=== PATIENT | male | born 1990 | race Caucasian/White ===

== ENCOUNTER 2022-08-22 07:06 | Outpatient (REF) | payer OTHER, SELFPAY ==
[2022-08-22 11:56] LABS: Hematocrit 41.8 % (42.0-52.0); Hemoglobin 14.4 g/dl (14.0-18.0); Mean Corpuscular HGB Conc 34.4 g/dl (31.0-36.0); Mean Corpuscular Hemoglobin 32.4 pg (27.0-33.0); Mean Corpuscular Volume 93.9 fL (80.0-98.0); Mean Platelet Volume 12.1 fL (9.4-12.4); Platelet Count 157 X10*3/uL (160-400); Red Blood Count 4.45 X10*6/uL (4.60-5.80); Red Cell Distribution Width 11.9 % (11.0-16.0); White Blood Count 4.8 X10*3/uL (4.8-10.8)
[2022-08-22 12:21] LABS: Appearance Urine Turbid; Color Urine Yellow; Glucose Urine UA Negative (Negative); Leukocyte Esterase Urine Negative (Negative); Nitrite Urine Negative (Negative); PH 5.5 (5.0-9.0); Specific Gravity - Urine 1.025 (1.005-1.025); Urine Blood Negative (Negative); Urine Ketones Trace mg/dL (Negative); Urine Protein Negative (Neg-Trace)
[2022-08-22 12:47] LABS: Alanine Aminotransferase 51 U/L (0-40); Albumin Level 4.5 g/dL (3.5-5.0); Alkaline Phosphatase 55 U/L (39-117); Anion Gap 11 (12-20); Aspartate Amino Transferase 26 U/L (5-37); Bilirubin Total 0.7 mg/dL (0.0-1.0); Blood Urea Nitrogen 18 mg/dL (9-16); Calcium 9.5 mg/dL (8.4-10.2); Carbon Dioxide 26 mmol/L (22-29); Chloride 109 mmol/L (96-108); Estimated Glomerular Filt Rate > 60; Glucose Fasting 105 mg/dL (60-99); Lipase 20 U/L (8-78); Potassium 4.1 mmol/L (3.3-5.1); Sodium 142 mmol/L (135-145); Total Protein 7.1 g/dL (6.5-8.0)
[2022-08-22 12:50] LABS: TSH reflex Free T4 1.38 uIU/mL (0.32-4.0)
== END 2022-08-22 07:07 | disposition home or self-care (01) ==
LOC: HO.WFDLDS 07:06
PROVIDERS: Visit Provider Nurse Practitioner Family
DX: Z00.00 Encounter for general adult medical examination without abnormal findings (principal)
CPT/HCPCS: 36415; 80053; 81003; 83690; 84443; 85027

== ENCOUNTER 2022-09-22 07:23 | Outpatient (REF) | payer OTHER, SELFPAY | END 2022-09-22 07:24 | disposition home or self-care (01) | LOC: HO.WFDLDS 07:23 | PROVIDERS: Visit Provider Nurse Practitioner Family | DX: Z00.00 Encounter for general adult medical examination without abnormal findings (principal); R73.01 Impaired fasting glucose; D69.6 Thrombocytopenia, unspecified | CPT/HCPCS: 36415; 80061; 82947; 85049 ==

== ENCOUNTER 2022-10-07 15:56 | Outpatient (AMB) | payer OTHER, SELFPAY ==
[2022-10-07 16:08] VITALS: BP 124/72; PULSE 65; TEMP 36.9; O2SAT 98; BMI 35.3
--- NOTE | 2022-10-07 16:08 | A.OFFPC_ITS ---
Vital Signs 10/07/22 16:08 Height 6 ft 1.5 in Weight 271 lb BMI 35.3 BP 124/72 Blood Pressure Location Lt brachial Position Sitting Pulse 65 Pulse Source Pulse Oximeter Temp 98.5 F Temp Source Oral Pulse Oximetry (%) 98 Oxygen Delivery Method Room Air Intake Visit Reasons: CPE Intake Note: Patient is here for physical today. Patient would like refill of Naltrexone and Trazedone today. Allergies Seasonal Allergies Allergy (Mild, Verified 10/07/22 16:52) Sneezing Medication List - Last Reconciled 10/07/22 by Lambert Ann CNP amoxicillin 250 mg PO TID colchicine (Mitigare) 0.6 mg PO DAILY PRN naltrexone 50 mg PO DAILY sertraline 150 mg PO DAILY trazodone 25 mg PO BEDTIME Tobacco use date assessed: 08/07/22 HPI HPI Comments History of Present Illness Details 32-year-old male presents for complete physical exam. He has history of anxiety and depression. He states that his symptoms are well controlled with sertraline. He states that he has not consumed alcohol since he started therapy for alcohol abuse. He notes that he continues to attend group therapy 3 nights weekly and that he was informed he will be on naltrexone for year. Addiction medicine provider prescribed naltrexone. Wounds to his left arm and right lower leg have healed. No acute symptoms today. He requests a refill for sertraline and trazodone. [facility] Medical History Anxiety Eczema Shingles Family History Paternal Grandmother Asthma Father Alcoholism Paternal Grandfather Alcoholism Social History Housing: House Patient Tobacco Use Status: Former Tobacco user Tobacco use type: Cigarette Cigarette Packs Per Day: 0.25 e-Cigarette/Vaping Use: Never Used Second Hand Smoke Exposure: No service: No Current occupational status: employed Current occupation: [employer] Cognitive needs: No Hearing needs: No Vision needs: No Questionnaire PHQ-9 Over the last 2 weeks, how often have you been bothered by any of the following problems? 1. Little interest or pleasure in doing things: not at all 2. Feeling down, depressed, or hopeless: not at all 3. Trouble falling or staying asleep, or sleeping too much: not at all 4. Feeling tired or having little energy: not at all 5. Poor appetite or overeating: not at all 6. Feeling bad about yourself - or that you are a failure or have let yourself or your family down: not at all 7. Trouble concentrating on things, such as reading the newspaper or watching television: not at all 8. Moving or speaking so slowly that other people could have noticed. Or the opposite - being so fidgety or restless that you have been moving around a lot more than usual: not at all 9. Thoughts that you would be better off or of hurting yourself in some way: not at all Total score: 0 Depression Screening Interpretation: Negative Source: Developed by Drs. Sanchez López, Angela Hutchinson, Terry Flores and colleagues, with an educational yamile from [employer]. Thrive Questionnaire Date Thrive assessed: 08/07/22 MELISSA-7 AMB Questionnaire MELISSA-7 Date MELISSA - 7 assessed: 09/10/22 Feeling nervous, anxious, or on edge: 0 = Not at all Not being able to stop or control worryin = Not at all Worrying too much about different things: 0 = Not at all Trouble relaxin = Not at all Being so restless that it is hard to sit still: 0 = Not at all Becoming easily annoyed or irritable: 0 = Not at all Feeling afraid as if something awful might happen: 0 = Not at all Total MELISSA-7 score (0-4 normal; 5-9 mild; 10-14 moderate; 15-21 severe): 0 Source: Developed by Drs. Sanchez López, Angela Hutchinson, Terry Flores and colleagues, with an educational yamile from [employer]. Review of Systems Const Details: Denies chills, Denies fatigue, Denies fever(s), Denies headache(s) and Denies weakness HEENT Denies change in vision, Denies dizziness, Denies headache(s), Denies hearing loss, Denies nasal congestion, Denies sinus pain, Denies sinus pressure and Denies sore throat Card Denies chest pain, Denies lightheadedness, Denies dyspnea and Denies other (palpitations) Resp Denies cough, Denies dyspnea and Denies wheezing GI Denies abdominal pain, Denies melena, Denies hematochezia, Denies change in bowel habits, Denies dyspepsia and Denies nausea Denies hematuria and Denies dysuria Musc Denies abnormal gait, Denies myalgias, Denies arthralgias, Denies numbness and Denies tingling Skin/Breast Denies rash, Denies unusual bruising and Denies wounds Neuro Denies abnormal gait, Denies dizziness, Denies headache(s), Denies memory loss, Denies numbness, Denies Sensory deficit (Neuro), Denies tingling and Denies w eakness Psych Denies anxiety, Denies depression and Denies memory loss Endo Denies cold intolerance, Denies fatigue, Denies heat intolerance, Denies p olydipsia and Denies polyuria Asaf/Lymph Denies easy bleeding and Denies easy bruising Aller/Immun Denies wheezing Physical exam (Primary Care) Vital Signs: Last Vital Signs Temp 98.5 F 10/07/22 16:08 Pulse 65 10/07/22 16:08 BP 124/72 10/07/22 16:08 Pulse Ox 98 10/07/22 16:08 Oxygen Delivery Method Room Air 10/07/22 16:08 BMI result Body Mass Index 35.3 Tobacco/Smoking Status: Tobacco use Status Tobacco use date assessed 08/07/22 10/07/22 16:15 Patient Tobacco Use Status Former Tobacco user 10/07/22 16:15 Tobacco use type Cigarette 10/07/22 16:15 e-Cigarette/Vaping Use Never Used 10/07/22 16:15 PHQ-9: PHQ-9 Score PHQ-9: Total score 0 10/07/22 16:15 Depression Screening Interpretation: Negative Thrive Assessment: Date of Thrive Assessment Date Thrive assessed 08/07/22 10/07/22 16:15 Const Other: General: no acute distress, well developed, alert and awake Nutritional Appearance: well nourished Orientation/consciousness: patient oriented x3 HENMT Head: Yes normocephalic and Yes atraumatic Ears: hearing grossly normal bilaterally and TM's normal bilaterally General nose exam: Normal external nose present and Normal nares present Mouth: Normal oral and palatal mucosa present and moist mucous membranes Teeth and gingiva: dentition normal Throat: Yes oropharynx normal Eyes Pupils: Equal, round and reactive pupils present and Pupil accommodation reflex normal EOM: EOMs intact bilaterally Neck Neck: Yes normal visual inspection, Yes no lymphadenopathy and Yes trachea midline Thyroid: Thyroid normal Carotids: no bruits Lymphatic: no lymphadenopathy noted Chest Chest palpation & inspection: normal inspection of the chest Resp Effort & Inspection: normal respiratory effort Auscultation: clear to auscultation bilaterally Cardio Rate: regular rate Rhythm: regular rhythm Heart sounds: S1 normal heart sound present, S2 normal heart sound present, no gallops, no murmurs and no rubs Bruits: no abdominal aortic bruits and no carotid bruits GI Palpation (GI): No Abdominal aortic bruit present, Soft to palpation, nontender, No hepatosplenomegaly present and No Rebound tenderness present Auscultation: normal bowel sounds General: Yes no CVA tenderness Back/Spine/Pelvis Back: no CVA tenderness Cervical Spine: cervical ROM normal and No Cervical spine tenderness Thoracic/Lumbar Spine: thoraco-lumbar ROM normal, No pain with thoraco-lumbar ROM, No thoracic spinal tenderness and No lumbar spinal tenderness Skin General: warm and dry. Normal skin color. Normal skin turgor Lesions: no lesions Rashes: no rashes Trauma: no lacerations or abrasions Wounds: Healthy scabs some to left arm and right lower extremity Nails: normal Neuro General: patient oriented x3, gait normal and CN's II-XI intact bilaterally Cranial nerves: Yes Equal, round and reactive pupils present Cognition (Neuro): normal cognition Gait exam (Neuro): Normal gait present Motor exam (neuro): 5/5 motor strength present throughout Sensory Exam: No Sensory deficit (Neuro) Deep tendon reflexes (DTR's): Right patellar reflex intensity grade: 2+ and Left patellar reflex intensity grade: 2+ Extrem General: Yes normal to inspection, No edema and No calf tenderness Psych Appearance: grossly normal Affect: normal affect Attitude: cooperative Thought process: Normal thought process present Assessment and Plan Assessment & Plan (1) Normal physical examination, routine: Code(s): Z00.00 - Encounter for general adult medical examination without abnormal findings Plan: Normal physical exam of a 31-year-old male No significant physical restrictions or limitations noted (2) Anxiety with depression: Code(s): F41.8 - Other specified anxiety disorders Plan: PHQ-9 and MELISSA-7 scores are negative Trazodone and sertraline refilled. Take as prescribed Routine exercise encouraged Follow-up in 3 months or return sooner with symptoms or concerns Verbalized understanding and agreed with treatment plan. (3) Wound cellulitis: Code(s): L03.90 - Cellulitis, unspecified Plan: Healthy scabs noted to the left arm and right lower extremity (4) Alcohol abuse, in remission: Code(s): F10.11 - Alcohol abuse, in remission Plan: He states that he has not consumed alcohol since he started therapy for alcohol abuse. He notes that he continues to attend group therapy 3 nights weekly and that he was informed he will be on naltrexone for year. Addiction medicine provider prescribed naltrexone. Encouraged to continue group therapy Continue to take naltrexone as prescribed Follow-up with any concerns Verbalized understanding and agreed with treatment plan Medications: Changed From trazodone 25 mg PO BEDTIME To trazodone 25 mg (1/2 x 50 mg) PO BEDTIME 15 tabs 0RF 30 days From sertraline 150 mg PO DAILY To sertraline 150 mg PO DAILY 30 caps 3RF 30 days Coding Level of Care Code Est Pt Prev Care 18-39y(63711) Diagnoses Normal physical examination, routine Z00.00 Anxiety with depression F41.8 Wound cellulitis L03.90 Alcohol abuse, in remission F10.11
== END 2022-10-07 17:04 | disposition home or self-care (01) ==
PROVIDERS: PCP Nurse Practitioner Family; Visit Provider Nurse Practitioner Family
DX: Z00.00 Encounter for general adult medical examination without abnormal findings (principal); F41.8 Other specified anxiety disorders; L03.90 Cellulitis, unspecified; F10.11 Alcohol abuse, in remission
CPT/HCPCS: 99395

== ENCOUNTER → 2022-11-10 12:44 | Outpatient (BNV) | payer OTHER, SELFPAY | PROVIDERS: PCP Nurse Practitioner Family; Referring Provider Nurse Practitioner Family; Visit Provider Internal Medicine Medical Oncology | DX: D69.6 Thrombocytopenia, unspecified (principal) | CPT/HCPCS: 99204 ==

== ENCOUNTER 2022-11-27 15:38 | Outpatient (AMB) | payer OTHER, SELFPAY ==
--- NOTE | 2022-11-27 15:50 | A.OFFPC_ITS ---
Vital Signs 11/27/22 15:51 Height 6 ft 1 in Weight 278 lb 8 oz BMI 36.7 BP 118/70 Blood Pressure Location Rt brachial Position Sitting Respiration 12 Pulse 75 Pulse Source Pulse Oximeter Temp 97.9 F Temp Source Temporal Artery Scan Pulse Oximetry (%) 99 Oxygen Delivery Method Room Air Intake Visit Reasons: referral for tingling in hands Intake Note: Patient states that he would like a referral to at [facility].Patient states that he needs refill for Naltrexone and Sertraline. Patient states he got email from stating that Sertraline refill was denied and he would like a refill. Sack Cleaning Hand Required: No Accompanied by: Self / Same As Patient Allergies Seasonal Allergies Allergy (Mild, Verified 11/27/22 16:06) Sneezing Medication List - Last Reconciled 11/27/22 by Lambert Ann CNP colchicine (gout) (Mitigare) 0.6 mg PO DAILY PRN naltrexone 50 mg PO DAILY sertraline 150 mg PO DAILY 30 days trazodone 25 mg (1/2 x 50 mg) PO BEDTIME 30 days Tobacco use date assessed: 08/07/22 Dental Screening Dental Screen Date: 11/27/22 Did you have a dental visit in the last 12 months?: No Did you have a dental problem in the last 6 months where you did not have access to dental care?: No Was dental information given to patient?: Yes HPI HPI Comments History of Present Illness Details 32-year-old male presents with complaint s of ongoing intermittent tingling and numbness to his hands which occasionally radiates to his forearms. He also endorses intermittent pain. He states his symptoms have been ongoing for the past 6 years and worse in the past 3 months. He requests a referral to Dr. Quinn, and specialist at [facility]. He is on naltrexone for alcohol dependence and attends therapy for alcohol abuse. He notes he has been sober for 90 days. [facility] Medical History (Updated 11/27/22 @ 16:22 by Lambert Ann CNP) Eczema Shingles Anxiety Surgical History (Updated 11/27/22 @ 16:00 by Mayra Moore MA) No pertinent past surgical history Family History Paternal Grandmother Asthma Father Alcoholism Paternal Grandfather Alcoholism Social History Housing: House Patient Tobacco Use Status: Former Tobacco user Tobacco use type: Cigarette Cigarette Packs Per Day: 0.25 e-Cigarette/Vaping Use: Never Used Second Hand Smoke Exposure: No service: No Current occupational status: employed Current occupation: [employer] Cognitive needs: No Hearing needs: No Vision needs: No Questionnaire PHQ-9 Over the last 2 weeks, how often have you been bothered by any of the following problems? 1. Little interest or pleasure in doing things: not at all 2. Feeling down, depressed, or hopeless: not at all 3. Trouble falling or staying asleep, or sleeping too much: not at all 4. Feeling tired or having little energy: not at all 5. Poor appetite or overeating: not at all 6. Feeling bad about yourself - or that you are a failure or have let yourself or your family down: not at all 7. Trouble concentrating on things, such as reading the newspaper or watching television: not at all 8. Moving or speaking so slowly that other people could have noticed. Or the opposite - being so fidgety or restless that you have been moving around a lot more than usual: not at all 9. Thoughts that you would be better off or of hurting yourself in some way: not at all Total score: 0 Source: Developed by Drs. Sanchez López, Angela Hutchinson, Terry Flores and colleagues, with an educational yamile from [employer]. Thrive Questionnaire Date Thrive assessed: 08/07/22 MELISSA-7 AMB Questionnaire MELISSA-7 Date MELISSA - 7 assessed: 11/27/22 Feeling nervous, anxious, or on edge: 0 = Not at all Not being able to stop or control worryin = Not at all Worrying too much about different things: 0 = Not at all Trouble relaxin = Not at all Being so restless that it is hard to sit still: 0 = Not at all Becoming easily annoyed or irritable: 0 = Not at all Feeling afraid as if something awful might happen: 0 = Not at all Total MELISSA-7 score (0-4 normal; 5-9 mild; 10-14 moderate; 15-21 severe): 0 Source: Developed by Drs. Sanchez López, Angela Hutchinson, Terry Flores and colleagues, with an educational yamile from [employer]. Review of Systems Const Details: Const Denies chills, Denies fatigue, Denies fever(s), Denies headache(s) and Denies weakness ENT Denies dizziness and Denies headache(s) Card Denies chest pain, Denies lightheadedness, Denies dyspnea and Denies other (Palpitations) Resp Denies cough, Denies dyspnea, Denies wheezing and Denies other ( shortness of breath) GI Denies abdominal pain, Denies melena, Denies hematochezia, Denies change in bowel habits, Denies dyspepsia and Denies nausea Denies hematuria and Denies dysuria Musc Denies abnormal gait, Denies myalgias, Denies arthralgias, Denies numbness and Denies tingling Skin/Breast Denies rash, Denies unusual bruising and Denies wounds Neuro Denies abnormal gait, Denies dizziness, Denies headache(s), Denies memory loss, Denies numbness, Denies Sensory deficit (Neuro), Denies tingling and Denies weakness Psych Denies anxiety, Denies depression, Denies memory loss Endo Denies cold intolerance, Denies fatigue, Denies heat intolerance, Denies polydipsia and Denies polyuria Aller/Immun Denies wheezing Physical exam (Primary Care) Vital Signs: Last Vital Signs Temp 97.9 F 11/27/22 15:51 Pulse 75 11/27/22 15:51 Resp 12 11/27/22 15:51 BP 118/70 11/27/22 15:51 Pulse Ox 99 11/27/22 15:51 Oxygen Delivery Method Room Air 11/27/22 15:51 BMI result Body Mass Index 36.7 Tobacco/Smoking Status: Tobacco use Status Tobacco use date assessed 08/07/22 11/27/22 16:02 Patient Tobacco Use Status Former Tobacco user 11/27/22 16:02 Tobacco use type Cigarette 11/27/22 16:02 e-Cigarette/Vaping Use Never Used 11/27/22 16:02 PHQ-9: PHQ-9 Score PHQ-9: Total score 0 11/27/22 16:02 Thrive Assessment: Date of Thrive Assessment Date Thrive assessed 08/07/22 11/27/22 16:02 Const Other: General: no acute distress and well developed Nutritional Appearance: well nourished Orientation/consciousness: patient oriented x3 [facility] Head: Yes normocephalic and Yes atraumatic Eyes General: appearance normal, both eyes and all related structures Pupils: Equal, round and reactive pupils present EOM: EOMs intact bilaterally Resp Effort & Inspection: normal respiratory effort Auscultation: clear to auscultation bilaterally Cardio Rate: regular rate Rhythm: regular rhythm Heart sounds: S1 normal heart sound present, S2 normal heart sound present, no gallops, no murmurs and no rubs GI Palpation (GI): No Abdominal aortic bruit present, Soft to palpation, nontender, No hepatosplenomegaly present and No Rebound tenderness present Auscultation: normal bowel sounds General: Yes no CVA tenderness Back/Spine/Pelvis Back: no CVA tenderness Cervical Spine: cervical ROM normal and No Cervical spine tenderness Thoracic/Lumbar Spine: thoraco-lumbar ROM normal, No pain with thoraco-lumbar ROM, No thoracic spinal tenderness and No lumbar spinal tenderness Extrem General: Yes normal to inspection, No edema and No calf tenderness Negative Tinel and Phalen tests Skin General: warm and dry. Normal skin color. Normal skin turgor Lesions: no lesions Rashes: no rashes Trauma: no lacerations or abrasions Wounds: no wounds Nails: normal Neuro General: patient oriented x3, gait normal and no focal neuro deficit Cranial nerves: Yes Equal, round and reactive pupils present Cognition (Neuro): normal cognition Gait exam (Neuro): Normal gait present Sensory Exam: No Sensory deficit (Neuro) Psych Appearance: grossly normal Affect: normal affect Attitude: cooperative Thought process: Normal thought process present Assessment and Plan Assessment & Plan (1) Paresthesia and pain of both upper extremities: Code(s): R20.2 - Paresthesia of skin; M79.601 - Pain in right arm; M79.602 - Pain in left arm Plan: Intermittent persistent tingling and numbness of both hands and forearms Negative Tinel and Phalen signs Likely nerve pain Gabapentin ordered. Take as prescribed Referred to hand specialist Return with worsening or new symptoms Verbalized understanding and agreed with treatment plan. Orders: Referrals Orthopedics Referral M79.601 - Pain in right arm, M79.602 - Pain in left arm, R20.2 - Paresthesia of skin Medications: Refilled sertraline 150 mg PO DAILY 30 days 30 caps 3RF Patient Instructions: Gabapentin ordered. Take as prescribed Referred to [facility] Follow-up with worsening or new symptoms Verbalized understanding and agreed with treatment plan. He will contact addiction medicine for refill of naltrexone. Coding Level of Care Code Est Pt Level 3 (79947) Diagnoses Paresthesia and pain of both upper extremities R20.2; M79.601; M79.602
[2022-11-27 15:51] VITALS: BP 118/70; PULSE 75; RESP 12; TEMP 36.6; O2SAT 99; BMI 36.7
== END 2022-11-27 16:17 | disposition home or self-care (01) ==
PROVIDERS: PCP Nurse Practitioner Family; Visit Provider Nurse Practitioner Family
DX: R20.2 Paresthesia of skin (principal); M79.601 Pain in right arm; M79.602 Pain in left arm
CPT/HCPCS: 99213

== ENCOUNTER 2023-05-04 15:59 | Outpatient (AMB) | payer OTHER, SELFPAY ==
--- NOTE | 2023-05-04 16:07 | MHC.PC.OV ---
Vital Signs 05/04/23 16:08 Height 6 ft 1 in Weight 300 lb BMI 39.6 BP 120/74 Blood Pressure Location Rt brachial Position Sitting Respiration 13 Pulse 88 Pulse Source Pulse Oximeter Temp 97.9 F Temp Source Temporal Artery Scan Pulse Oximetry (%) 98 Oxygen Delivery Method Room Air Intake Visit Reasons: Sertraline Update Health Safety Coordinator Required: No Accompanied by: Self / Same As Patient Allergies Seasonal Allergies Allergy (Mild, Verified 05/04/23 16:12) Sneezing Tobacco use date assessed: 05/04/23 Dental Screening Dental Screen Date: 05/04/23 Did you have a dental visit in the last 12 months?: No Did you have a dental problem in the last 6 months where you did not have access to dental care?: No Was dental information given to patient?: Yes HPI HPI Comments History of Present Illness Details 32 y/o male presents for anxiety and depression follow up His last office visit was in November 2022 He admits to taking his medications as prescribed without adverse reactions He offers no complaints and denies acute symptoms at this time He states that he had carpal tunnel surgery of both hands in March 2023. He was given 6 weeks time off work. He is due to return to work next week He has no longer on naltrexone. He continues to attend AA meeting. He has been avoiding alcohol intake. [facility] Medical History (Updated 11/27/22 @ 16:22 by Lambert Ann CNP) Eczema Shingles Anxiety Surgical History (Updated 05/04/23 @ 16:15 by Mayra Moore MA) History of carpal tunnel surgery No pertinent past surgical history Family History Paternal Grandmother Asthma Father Alcoholism Paternal Grandfather Alcoholism Social History Housing: House Patient Tobacco Use Status: Former Tobacco user Tobacco use type: Cigarette Cigarette Packs Per Day: 0.25 e-Cigarette/Vaping Use: Never Used Second Hand Smoke Exposure: No service: No Current occupational status: employed Current occupation: [employer] Cognitive needs: No Hearing needs: No Vision needs: No Questionnaire PHQ-9 Over the last 2 weeks, how often have you been bothered by any of the following problems? 1. Little interest or pleasure in doing things: several days 2. Feeling down, depressed, or hopeless: not at all 3. Trouble falling or staying asleep, or sleeping too much: not at all 4. Feeling tired or having little energy: several days 5. Poor appetite or overeating: several days 6. Feeling bad about yourself - or that you are a failure or have let yourself or your family down: not at all 7. Trouble concentrating on things, such as reading the newspaper or watching television: not at all 8. Moving or speaking so slowly that other people could have noticed. Or the opposite - being so fidgety or restless that you have been moving around a lot more than usual: not at all 9. Thoughts that you would be better off or of hurting yourself in some way: not at all Total score: 3 Depression Screening Interpretation: Negative Depression Screening Done: Yes 58113 - PHQ-9 Billing: Yes Source: Developed by Drs. Sanchez López, Angela Hutchinson, Terry Flores and colleagues, with an educational yamile from [employer]. Thrive Questionnaire Date Thrive assessed: 08/07/22 MELISSA-7 AMB Questionnaire MELISSA-7 Date MELISSA - 7 assessed: 05/04/23 Feeling nervous, anxious, or on edge: 0 = Not at all Not being able to stop or control worryin = Not at all Worrying too much about different things: 0 = Not at all Trouble relaxin = Not at all Being so restless that it is hard to sit still: 0 = Not at all Becoming easily annoyed or irritable: 1 = Several days Feeling afraid as if something awful might happen: 0 = Not at all Total MELISSA-7 score (0-4 normal; 5-9 mild; 10-14 moderate; 15-21 severe): 1 Source: Developed by Drs. Sanchez López, Angela Hutchinson, Terry Flores and colleagues, with an educational yamile from [employer]. MELISSA-7 Assessment Billing MELISSA-7 Assessment Tool: MELISSA-7 Assessment 69216 Review of Systems Const Details: Const Denies chills, Denies fatigue, Denies fever(s), Denies headache(s) and Denies weakness ENT Denies dizziness and Denies headache(s) Card Denies chest pain, Denies lightheadedness, Denies dyspnea and Denies other (Palpitations) Resp Denies cough, Denies dyspnea, Denies wheezing and Denies other ( shortness of breath) GI Denies abdominal pain, Denies melena, Denies hematochezia, Denies change in bowel habits, Denies dyspepsia and Denies nausea Denies hematuria and Denies dysuria Musc Denies abnormal gait, Denies myalgias, Denies arthralgias, Denies numbness and Denies tingling Skin/Breast Denies rash, Denies unusual bruising and Denies wounds Neuro Denies abnormal gait, Denies dizziness, Denies headache(s), Denies memory loss, Denies numbness, Denies Sensory deficit (Neuro), Denies tingling and Denies weakness Psych Denies anxiety, Denies depression, Denies memory loss Endo Denies cold intolerance, Denies fatigue, Denies heat intolerance, Denies polydipsia and Denies polyuria Aller/Immun Denies wheezing Physical exam (Primary Care) Tobacco/Smoking Status: Tobacco use Status Tobacco use date assessed 08/07/22 11/27/22 16:02 Patient Tobacco Use Status Former Tobacco user 11/27/22 16:02 Tobacco use type Cigarette 11/27/22 16:02 e-Cigarette/Vaping Use Never Used 11/27/22 16:02 Depression Screening Interpretation: Negative Thrive Assessment: Date of Thrive Assessment Date Thrive assessed 08/07/22 11/27/22 16:02 Const Other: General: no acute distress and well developed Nutritional Appearance: well nourished Orientation/consciousness: patient oriented x3 HENNM Head: Yes normocephalic and Yes atraumatic Eyes General: appearance normal, both eyes and all related structures Pupils: Equal, round and reactive pupils present EOM: EOMs intact bilaterally Resp Effort & Inspection: normal respiratory effort Auscultation: clear to auscultation bilaterally Cardio Rate: regular rate Rhythm: regular rhythm Heart sounds: S1 normal heart sound present, S2 normal heart sound present, no gallops, no murmurs and no rubs GI Palpation (GI): No Abdominal aortic bruit present, Soft to palpation, nontender, No hepatosplenomegaly present and No Rebound tenderness present Auscultation: normal bowel sounds General: Yes no CVA tenderness Back/Spine/Pelvis Back: no CVA tenderness Cervical Spine: cervical ROM normal and No Cervical spine tenderness Thoracic/Lumbar Spine: thoraco-lumbar ROM normal, No pain with thoraco-lumbar ROM, No thoracic spinal tenderness and No lumbar spinal tenderness Extrem General: Yes normal to inspection, No edema and No calf tenderness Skin General: warm and dry. Normal skin color. Normal skin turgor Neuro General: patient oriented x3, gait normal and no focal neuro deficit Cranial nerves: Yes Equal, round and reactive pupils present Cognition (Neuro): normal cognition Gait exam (Neuro): Normal gait present Sensory Exam: No Sensory deficit (Neuro) Psych Appearance: grossly normal Affect: normal affect Attitude: cooperative Thought process: Normal thought process present Assessment and Plan Assessment & Plan (1) Anxiety with depression: Code(s): F41.8 - Other specified anxiety disorders Plan: No acute symptoms PHQ-9 and MELISSA-7 scores are normal Continue current treatment regimen Routine exercise encouraged Follow-up in 4 months or return sooner with symptoms or concerns Verbalized understanding and agreed with treatment plan Coding Level of Care Code Est Pt Level 3 (98608) Diagnoses Anxiety with depression F41.8 Additional Codes MELISSA-7 Assessment Billing - MELISSA-7 Assessment Tool: MELISSA-7 Assessment 87006 ([id number])
[2023-05-04 16:08] VITALS: BP 120/74; PULSE 88; RESP 13; TEMP 36.6; O2SAT 98; BMI 39.6
== END 2023-05-04 16:29 | disposition home or self-care (01) ==
PROVIDERS: PCP Nurse Practitioner Family; Visit Provider Nurse Practitioner Family
DX: F41.8 Other specified anxiety disorders (principal)
CPT/HCPCS: 99213

== ENCOUNTER 2023-07-20 16:45 | Outpatient (AMB) | payer OTHER, SELFPAY ==
[2023-07-20 16:45] VITALS: BP 130/80; PULSE 81; RESP 13; TEMP 36.6; O2SAT 99; BMI 40.0
--- NOTE | 2023-07-20 16:45 | MHC.PC.OV ---
Vital Signs 07/20/23 16:45 Height 6 ft 1 in Weight 303 lb 4 oz BMI 40.0 BP 130/80 Blood Pressure Location Rt brachial Position Sitting Respiration 13 Pulse 81 Pulse Source Pulse Oximeter Temp 98 F Temp Source Temporal Artery Scan Pulse Oximetry (%) 99 Oxygen Delivery Method Room Air Intake Visit Reasons: TDAP shot , follow up for Sertraline Optical Technician Required: No Accompanied by: Self / Same As Patient Allergies Seasonal Allergies Allergy (Mild, Verified 07/20/23 17:05) Sneezing Medication List - Last Reconciled 07/20/23 by Lambert Ann CNP sertraline 50 mg PO DAILY 30 days sertraline 100 mg PO DAILY 30 days trazodone 25 mg (1/2 x 50 mg) PO BEDTIME 30 days Tobacco use date assessed: 05/04/23 Dental Screening Dental Screen Date: 05/04/23 HPI HPI Comments History of Present Illness Details 32 y/o male presents for anxiety and depression follow up He admits to taking his medications as prescribed without adverse reactions He reports controlled anxiety and depression symptoms He is excited that he and his are expecting a baby in 2 weeks He offers no complaints and denies acute symptoms at this time He request Tdap vaccine because his expected a baby in 2 weeks PFSH Medical History Eczema Shingles Anxiety Surgical History History of carpal tunnel surgery No pertinent past surgical history Family History Paternal Grandmother Asthma Father Alcoholism Paternal Grandfather Alcoholism Social History Housing: House Patient Tobacco Use Status: Former Tobacco user Tobacco use type: Cigarette Cigarette Packs Per Day: 0.25 e-Cigarette/Vaping Use: Never Used Second Hand Smoke Exposure: No service: No Current occupational status: employed Current occupation: [employer] Cognitive needs: No Hearing needs: No Vision needs: No Questionnaire PHQ-9 Over the last 2 weeks, how often have you been bothered by any of the following problems? 1. Little interest or pleasure in doing things: several days 2. Feeling down, depressed, or hopeless: not at all 3. Trouble falling or staying asleep, or sleeping too much: not at all 4. Feeling tired or having little energy: several days 5. Poor appetite or overeating: more than half the days 6. Feeling bad about yourself - or that you are a failure or have let yourself or your family down: not at all 7. Trouble concentrating on things, such as reading the newspaper or watching television: not at all 8. Moving or speaking so slowly that other people could have noticed. Or the opposite - being so fidgety or restless that you have been moving around a lot more than usual: not at all 9. Thoughts that you would be better off or of hurting yourself in some way: not at all Total score: 4 Depression Screening Interpretation: Negative Depression Screening Done: Yes 96671 - PHQ-9 Billing: Yes Source: Developed by Drs. Sanchez López, Angela Hutchinson, Terry Flores and colleagues, with an educational yamile from [employer]. Thrive Questionnaire Date Thrive assessed: 08/07/22 MELISSA-7 AMB Questionnaire MELISSA-7 Date MELISSA - 7 assessed: 07/20/23 Feeling nervous, anxious, or on edge: 0 = Not at all Not being able to stop or control worryin = Not at all Worrying too much about different things: 0 = Not at all Trouble relaxin = Several days Being so restless that it is hard to sit still: 0 = Not at all Becoming easily annoyed or irritable: 1 = Several days Feeling afraid as if something awful might happen: 1 = Several days Total MELISSA-7 score (0-4 normal; 5-9 mild; 10-14 moderate; 15-21 severe): 3 Source: Developed by Drs. Sanchez López, Angela Hutchinson, Terry Flores and colleagues, with an educational yamile from [employer]. MELISSA-7 Assessment Billing MELISSA-7 Assessment Tool: MELISSA-7 Assessment 90343 Review of Systems Const Details: Const Denies chills, Denies fatigue, Denies fever(s), Denies headache(s) and Denies weakness ENT Denies dizziness and Denies headache(s) Card Denies chest pain, Denies lightheadedness, Denies dyspnea and Denies other (Palpitations) Resp Denies cough, Denies dyspnea, Denies wheezing and Denies other ( shortness of breath) GI Denies abdominal pain, Denies melena, Denies hematochezia, Denies change in bowel habits, Denies dyspepsia and Denies nausea Denies hematuria and Denies dysuria Musc Denies abnormal gait, Denies myalgias, Denies arthralgias, Denies numbness and Denies tingling Skin/Breast Denies rash, Denies unusual bruising and Denies wounds Neuro Denies abnormal gait, Denies dizziness, Denies headache(s), Denies memory loss, Denies numbness, Denies Sensory deficit (Neuro), Denies tingling and Denies weakness Psych Denies anxiety, Denies depression, Denies memory loss Endo Denies cold intolerance, Denies fatigue, Denies heat intolerance, Denies polydipsia and Denies polyuria Aller/Immun Denies wheezing Physical exam (Primary Care) Vital Signs: Last Vital Signs Temp 98 F 07/20/23 16:45 Pulse 81 07/20/23 16:45 Resp 13 07/20/23 16:45 BP 130/80 07/20/23 16:45 Pulse Ox 99 07/20/23 16:45 Oxygen Delivery Method Room Air 07/20/23 16:45 BMI result Body Mass Index 40.0 Tobacco/Smoking Status: Tobacco use Status Tobacco use date assessed 05/04/23 07/20/23 16:55 Patient Tobacco Use Status Former Tobacco user 07/20/23 16:55 Tobacco use type Cigarette 07/20/23 16:55 e-Cigarette/Vaping Use Never Used 07/20/23 16:55 PHQ-9: PHQ-9 Score PHQ-9: Total score 4 07/20/23 16:55 Depression Screening Interpretation: Negative Thrive Assessment: Date of Thrive Assessment Date Thrive assessed 08/07/22 07/20/23 16:55 Const Other: General: no acute distress and well developed Nutritional Appearance: well nourished Orientation/consciousness: patient oriented x3 HENMT Head: Yes normocephalic and Yes atraumatic Eyes General: appearance normal, both eyes and all related structures Pupils: Equal, round and reactive pupils present EOM: EOMs intact bilaterally Resp Effort & Inspection: normal respiratory effort Auscultation: clear to auscultation bilaterally Cardio Rate: regular rate Rhythm: regular rhythm Heart sounds: S1 normal heart sound present, S2 normal heart sound present, no gallops, no murmurs and no rubs GI Palpation (GI): No Abdominal aortic bruit present, Soft to palpation, nontender, No hepatosplenomegaly present and No Rebound tenderness present Auscultation: normal bowel sounds General: Yes no CVA tenderness Back/Spine/Pelvis Back: no CVA tenderness Cervical Spine: cervical ROM normal and No Cervical spine tenderness Thoracic/Lumbar Spine: thoraco-lumbar ROM normal, No pain with thoraco-lumbar ROM, No thoracic spinal tenderness and No lumbar spinal tenderness Extrem General: Yes normal to inspection, No edema and No calf tenderness Skin General: warm and dry. Normal skin color. Normal skin turgor Lesions: no lesions Rashes: no rashes Trauma: no lacerations or abrasions Wounds: no wounds Nails: normal Neuro General: patient oriented x3, gait normal and no focal neuro deficit Cranial nerves: Yes Equal, round and reactive pupils present Cognition (Neuro): normal cognition Gait exam (Neuro): Normal gait present Sensory Exam: No Sensory deficit (Neuro) Psych Appearance: grossly normal Affect: normal affect Attitude: cooperative Thought process: Normal thought process present Assessment and Plan Assessment & Plan (1) Anxiety with depression: Code(s): F41.8 - Other specified anxiety disorders Plan: Reports controlled anxiety and depression symptoms PHQ-9 and MELISSA-7 scores are normal Continue to take sertraline and trazodone as prescribed Routine exercise encouraged Will continue to monitor Follow-up in 3 months for an extended physical exam or return sooner with symptoms or concerns Verbalized understanding and agreed with treatment plan Tdap vaccine administered today by the nurse (2) Laboratory tests ordered as part of a complete physical exam (CPE): Code(s): Z00.00 - Encounter for general adult medical examination without abnormal findings Plan: Fasting labs ordered in preparation of a complete physical exam. Advised to fast for at least 10 hours before getting labs drawn. May drink water Verbalized understanding and agreed with treatment plan. Orders: Orders Complete Blood Count Auto Diff Today Z00.00 - Encounter for general adult medical examination without abnormal findings TSH reflex Free T4 Today Z00.00 - Encounter for general adult medical examination without abnormal findings Comprehensive [place]. Panel Fast Today Z00.00 - Encounter for general adult medical examination without abnormal findings Lipid Panel Today Z00.00 - Encounter for general adult medical examination without abnormal findings UA CC w/rflx Micro + Cult Today Z00.00 - Encounter for general adult medical examination without abnormal findings Coding Level of Care Code Est Pt Level 4 (95569) Complex EM visit Add On G2211 Diagnoses Anxiety with depression F41.8 Laboratory tests ordered as part of a complete physical exam (CPE) Z00.00 Additional Codes MELISSA-7 Assessment Billing - MELISSA-7 Assessment Tool: MELISSA-7 Assessment 42104 ([id number])
== END 2023-07-20 17:16 | disposition home or self-care (01) ==
PROVIDERS: PCP Nurse Practitioner Family; Visit Provider Nurse Practitioner Family
DX: Z23 Encounter for immunization (principal)
CPT/HCPCS: 90471; 90715; 99214; G2211

== ENCOUNTER 2023-12-21 14:49 | Outpatient (AMB) | payer OTHER, SELFPAY ==
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
[2023-12-21 15:00] VITALS: BP 134/74; PULSE 102; RESP 16; O2SAT 97; BMI 41.0
[2023-12-21 15:39] VITALS: PULSE 92
== END 2023-12-21 15:41 | disposition home or self-care (01) ==
PROVIDERS: PCP Nurse Practitioner Family; Visit Provider Physician Assistant Medical
DX: Z00.00 Encounter for general adult medical examination without abnormal findings (principal); L30.9 Dermatitis, unspecified; R73.01 Impaired fasting glucose

== ENCOUNTER → 2023-12-21 14:49 | Outpatient (BNVA) | payer OTHER, SELFPAY | PROVIDERS: PCP Nurse Practitioner Family; Visit Provider Physician Assistant Medical ==

== ENCOUNTER 2024-06-09 15:34 | Outpatient (AMB) | payer OTHER, SELFPAY ==
--- NOTE | 2024-06-09 15:39 | MHC.PC.OV ---
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 Allergies Seasonal Allergies Allergy (Mild, Verified 06/09/24 15:50) Sneezing Medication List - Last Reconciled 06/09/24 by Lambert Ann CNP sertraline 50 mg PO DAILY 90 days sertraline 100 mg PO DAILY 90 days Tobacco use date assessed: 06/09/24 Dental Screening Dental Screen Date: 06/09/24 Did you have a dental visit in the last 12 months?: Yes Did you have a dental problem in the last 6 months where you did not have access to dental care?: No Was dental information given to patient?: Patient has dentist HPI HPI Comments History of Present Illness Details 33-year-old male presents for anxiety and depression follow-up. He has been taking sertraline as prescribed without adverse reactions. His anxiety and depression symptoms have been well controlled. He offers no complaints and denies acute symptoms at this time. He notes that he had blood work done with [facility]. COUNTS INCLUDE 234 BEDS AT THE [facility] Medical History (Updated 01/19/24 @ 08:36 by MICHLELE Lanza) Obesity Dermatitis Eczema Shingles Anxiety Surgical History History of carpal tunnel surgery No pertinent past surgical history Family History Paternal Grandmother Asthma Father Alcoholism Paternal Grandfather Alcoholism Social History Housing: House Patient Tobacco Use Status: Former Tobacco user Tobacco use type: Cigarette Cigarette Packs Per Day: 0.25 e-Cigarette/Vaping Use: Never Used Second Hand Smoke Exposure: No service: No Current occupational status: employed Current occupation: [employer] Cognitive needs: No Hearing needs: No Vision needs: No Questionnaire PHQ-9 Over the last 2 weeks, how often have you been bothered by any of the following problems? 1. Little interest or pleasure in doing things: not at all 2. Feeling down, depressed, or hopeless: several days 3. Trouble falling or staying asleep, or sleeping too much: not at all 4. Feeling tired or having little energy: several days 5. Poor appetite or overeating: several days 6. Feeling bad about yourself - or that you are a failure or have let yourself or your family down: several days 7. Trouble concentrating on things, such as reading the newspaper or watching television: several days 8. Moving or speaking so slowly that other people could have noticed. Or the opposite - being so fidgety or restless that you have been moving around a lot more than usual: not at all 9. Thoughts that you would be better off or of hurting yourself in some way: not at all Total score: 5 Depression Screening Interpretation: Positive Depression Screening Follow-up: Existing condition and In treatment Depression Screening Done: Yes Source: Developed by Drs. Sanchez López, Angela Hutchinson, Terry Flores and colleagues, with an educational yamile from [employer]. Thrive Questionnaire Date Thrive assessed: 08/07/22 I am a: Patient What is your living situation today?: I have a steady place to live Within the past 12 months, did the food you bought not last and you didn't have the money to get more?: Never true Within the past 12 months, did you worry whether your food would run out before you got money to buy more?: Never true Do you have trouble paying for medicines?: No Do you have trouble getting transportation to medical appointments?: No Do you have trouble paying your heating and electricity bill?: No Do you have trouble taking care of your child, family member or friend?: No Do you have trouble with day-to-day activities such as bathing, preparing meals, shopping, managing finances, etc.?: No Are you currently unemployed and looking for a job?: No Are you interested in more education?: No Please select the resources that you would like help with: None Currently or been in a relationship where the following occur: No concerns reported THRIVE Score: 0 AUDIT C Alcohol Use Questionnaire (AUDIT-C) 1. How often do you have a drink containing alcohol?: Never Total Score: 0 MELISSA-7 AMB Questionnaire MELISSA-7 Date MELISSA - 7 assessed: 07/20/23 Feeling nervous, anxious, or on edge: 1 = Several days Not being able to stop or control worryin = Several days Worrying too much about different things: 1 = Several days Trouble relaxin = Not at all Being so restless that it is hard to sit still: 1 = Several days Becoming easily annoyed or irritable: 1 = Several days Feeling afraid as if something awful might happen: 1 = Several days Total MELISSA-7 score (0-4 normal; 5-9 mild; 10-14 moderate; 15-21 severe): 6 Source: Developed by Drs. Sanchez López, Angela Hutchinson, Terry Flores and colleagues, with an educational yamile from [employer]. Review of Systems Const Details: Const Denies chills, Denies fatigue, Denies fever(s), Denies headache(s) and Denies weakness ENT Denies dizziness and Denies headache(s) Card Denies chest pain, Denies lightheadedness, Denies dyspnea and Denies other (Palpitations) Resp Denies cough, Denies dyspnea, Denies wheezing and Denies other ( shortness of breath) GI Denies abdominal pain, Denies melena, Denies hematochezia, Denies change in bowel habits, Denies dyspepsia and Denies nausea Denies hematuria and Denies dysuria Musc Denies abnormal gait, Denies myalgias, Denies arthralgias, Denies numbness and Denies tingling Skin/Breast Denies rash, Denies unusual bruising and Denies wounds Neuro Denies abnormal gait, Denies dizziness, Denies headache(s), Denies memory loss, Denies numbness, Denies Sensory deficit (Neuro), Denies tingling and Denies weakness Psych Denies anxiety, Denies depression, Denies memory loss Endo Denies cold intolerance, Denies fatigue, Denies heat intolerance, Denies polydipsia and Denies polyuria Aller/Immun Denies wheezing Physical exam (Primary Care) Vital Signs: Last Vital Signs Temp 98.6 F 06/09/24 15:44 Pulse 71 06/09/24 15:44 Resp 16 06/09/24 15:44 BP 132/71 06/09/24 15:44 Pulse Ox 97 06/09/24 15:44 Oxygen Delivery Method Room Air 06/09/24 15:44 BMI result Body Mass Index 40.9 Tobacco/Smoking Status: Tobacco use Status Tobacco use date assessed 06/09/24 06/09/24 15:47 Patient Tobacco Use Status Former Tobacco user 06/09/24 15:41 Tobacco use type Cigarette 06/09/24 15:41 e-Cigarette/Vaping Use Never Used 06/09/24 15:41 PHQ-9: PHQ-9 Score PHQ-9: Total score 5 06/09/24 15:41 Depression Screening Interpretation: Positive Depression Screening Follow-up: Existing condition and In treatment Thrive Assessment: Date of Thrive Assessment Date Thrive assessed 08/07/22 06/09/24 15:41 Currently or been in a relationship where the following occur: No concerns reported Const Other: General: no acute distress and well developed Nutritional Appearance: well nourished Orientation/consciousness: patient oriented x3 HENMT Head: Yes normocephalic and Yes atraumatic Eyes General: appearance normal, both eyes and all related structures Pupils: Equal, round and reactive pupils present EOM: EOMs intact bilaterally Resp Effort & Inspection: normal respiratory effort Auscultation: clear to auscultation bilaterally Cardio Rate: regular rate Rhythm: regular rhythm Heart sounds: S1 normal heart sound present, S2 normal heart sound present, no gallops, no murmurs and no rubs GI Palpation (GI): No Abdominal aortic bruit present, Soft to palpation, nontender, No hepatosplenomegaly present and No Rebound tenderness present Auscultation: normal bowel sounds General: Yes no CVA tenderness Back/Spine/Pelvis Back: no CVA tenderness Cervical Spine: cervical ROM normal and No Cervical spine tenderness Thoracic/Lumbar Spine: thoraco-lumbar ROM normal, No pain with thoraco-lumbar ROM, No thoracic spinal tenderness and No lumbar spinal tenderness Extrem General: Yes normal to inspection, No edema and No calf tenderness Skin General: warm and dry. Normal skin color. Normal skin turgor Lesions: no lesions Rashes: no rashes Trauma: no lacerations or abrasions Wounds: no wounds Nails: normal Neuro General: patient oriented x3, gait normal and no focal neuro deficit Cranial nerves: Yes Equal, round and reactive pupils present Cognition (Neuro): normal cognition Gait exam (Neuro): Normal gait present Sensory Exam: No Sensory deficit (Neuro) Psych Appearance: grossly normal Affect: normal affect Attitude: cooperative Thought process: Normal thought process present Coding Level of Care Code Est Pt Level 3 (08324) Diagnoses Anxiety with depression F41.8 Assessment & Plan Assessment & Plan (1) Anxiety with depression: Code(s): F41.8 - Other specified anxiety disorders Category: Medical Plan: Controlled anxiety and depressive symptoms. PHQ-9 and MELISSA-7 scores revealed mild depression and anxiety. Sertraline refilled. Continue to take as prescribed. Routine exercise encouraged. Follow-up in 3 months or sooner with symptoms or concerns. Verbalized understanding and agreed with the treatment plan. Will request and review lab work from [id number]. Medications: Refilled sertraline Give with Sertraline 100 mg to equal 150 mg 50 mg PO DAILY 90 days 90 tabs 1RF sertraline Give with Sertraline 50 mg to equal 150 mg 100 mg PO DAILY 90 days 90 tabs 1RF
[2024-06-09 15:44] VITALS: BP 132/71; PULSE 71; RESP 16; TEMP 37; O2SAT 97; BMI 40.9
== END 2024-06-09 15:55 | disposition home or self-care (01) ==
LOC: HO.HMCFM 15:35
PROVIDERS: PCP Nurse Practitioner Family; Visit Provider Nurse Practitioner Family
DX: F41.8 Other specified anxiety disorders (principal)

== ENCOUNTER → 2024-06-09 15:34 | Outpatient (BNVA) | payer OTHER, SELFPAY | PROVIDERS: PCP Nurse Practitioner Family; Visit Provider Nurse Practitioner Family ==

== ENCOUNTER 2024-09-09 12:36 | Outpatient (AMB) | payer OTHER, SELFPAY ==
--- NOTE | 2024-09-09 12:41 | MHC.PC.OV ---
Vital Signs 09/09/24 12:49 Height 6 ft 1 in Weight 304 lb 8 oz BMI 40.2 BP 135/72 Blood Pressure Location Rt brachial Position Sitting Respiration 16 Pulse 72 Pulse Source Pulse Oximeter Temp 98.9 F Temp Source Oral Pulse Oximetry (%) 98 Oxygen Delivery Method Room Air Intake Visit Reasons: 3 mos anxiety, depression Intake Note: patient here for 3 month follow up on anxiety and depression Virtual Assistant Required: No Allergies Seasonal Allergies Allergy (Mild, Verified 09/09/24 13:18) Sneezing Medication List - Last Reconciled 09/09/24 by Lambert Ann CNP sertraline 50 mg PO DAILY 90 days sertraline 100 mg PO DAILY 90 days tacrolimus 0.1% (Protopic) 1 appl topical BID Tobacco use date assessed: 09/09/24 Dental Screening Dental Screen Date: 09/09/24 Did you have a dental visit in the last 12 months?: Yes Did you have a dental problem in the last 6 months where you did not have access to dental care?: No Was dental information given to patient?: Patient has dentist HPI HPI Comments History of Present Illness Details 33-year-old male presents for anxiety and depression follow-up. He has been taking sertraline as prescribed without adverse reactions. He reports anxiety and depression symptoms which have generally been well controlled. He notes that he has been under significant amount of stress in the past couple of months. He is exposed to daily personal and family stressors, including work, caring for his 1-year-old child and his who has brain cancer. Although his is in remission, he finds it challenging to have a full conversation with her because she utters a few words due to her condition - he finds it very frustrating. No acute symptoms at this time. He notes that he will bring lab results from [facility] for review. [facility] Medical History (Updated 09/09/24 @ 13:36 by Lambert Ann CNP) Obesity Dermatitis Eczema Shingles Anxiety Surgical History History of carpal tunnel surgery No pertinent past surgical history Family History Paternal Grandmother Asthma Father Alcoholism Paternal Grandfather Alcoholism Social History Housing: House Patient Tobacco Use Status: Former Tobacco user Tobacco use type: Cigarette Cigarette Packs Per Day: 0.25 e-Cigarette/Vaping Use: Never Used Second Hand Smoke Exposure: No service: No Current occupational status: employed Current occupation: [employer] Current occupational exposures/hazards: Yes (he works at a machine shop) Cognitive needs: No Hearing needs: No Vision needs: No Questionnaire PHQ-9 Over the last 2 weeks, how often have you been bothered by any of the following problems? 1. Little interest or pleasure in doing things: several days 2. Feeling down, depressed, or hopeless: more than half the days 3. Trouble falling or staying asleep, or sleeping too much: not at all 4. Feeling tired or having little energy: several days 5. Poor appetite or overeating: more than half the days 6. Feeling bad about yourself - or that you are a failure or have let yourself or your family down: more than half the days 7. Trouble concentrating on things, such as reading the newspaper or watching television: more than half the days 8. Moving or speaking so slowly that other people could have noticed. Or the opposite - being so fidgety or restless that you have been moving around a lot more than usual: not at all 9. Thoughts that you would be better off or of hurting yourself in some way: not at all Total score: 10 Depression Screening Interpretation: Positive Depression Screening Follow-up: Existing condition, In treatment and Community Mental Health Worker F/U Depression Screening Done: Yes 56478 - PHQ-9 Billing: Yes Source: Developed by Drs. Sanchez López, Angela Hutchinson, Terry Flores and colleagues, with an educational yamile from [employer]. Thrive Questionnaire Date Thrive assessed: 09/09/24 I am a: Patient What is your living situation today?: I have a steady place to live Within the past 12 months, did the food you bought not last and you didn't have the money to get more?: Never true Within the past 12 months, did you worry whether your food would run out before you got money to buy more?: Never true Do you have trouble paying for medicines?: No Do you have trouble getting transportation to medical appointments?: No Do you have trouble paying your heating and electricity bill?: No Do you have trouble taking care of your child, family member or friend?: No Do you have trouble with day-to-day activities such as bathing, preparing meals, shopping, managing finances, etc.?: No Are you currently unemployed and looking for a job?: No Are you interested in more education?: No Please select the resources that you would like help with: None Currently or been in a relationship where the following occur: No concerns reported THRIVE Score: 0 MELISSA-7 AMB Questionnaire MELISSA-7 Date MELISSA - 7 assessed: 09/09/24 Feeling nervous, anxious, or on edge: 2 = More than half the days Not being able to stop or control worryin = More than half the days Worrying too much about different things: 2 = More than half the days Trouble relaxin = More than half the days Being so restless that it is hard to sit still: 2 = More than half the days Becoming easily annoyed or irritable: 2 = More than half the days Feeling afraid as if something awful might happen: 1 = Several days Total MELISSA-7 score (0-4 normal; 5-9 mild; 10-14 moderate; 15-21 severe): 13 Source: Developed by Drs. Sanchez López, Angela Hutchinson, Terry Flores and colleagues, with an educational yamile from [employer]. MELISSA-7 Assessment Billing MELISSA-7 Assessment Tool: MELISSA-7 Assessment 31906 Review of Systems Const Details: Const Denies chills, Denies fatigue, Denies fever(s), Denies headache(s) and Denies weakness ENT Denies dizziness and Denies headache(s) Card Denies chest pain, Denies lightheadedness, Denies dyspnea and Denies other (Palpitations) Resp Denies cough, Denies dyspnea, Denies wheezing and Denies other ( shortness of breath) GI Denies abdominal pain, Denies melena, Denies hematochezia, Denies change in bowel habits, Denies dyspepsia and Denies nausea Denies hematuria and Denies dysuria Musc Denies abnormal gait, Denies myalgias, Denies arthralgias, Denies numbness and Denies tingling Skin/Breast Denies rash, Denies unusual bruising and Denies wounds Neuro Denies abnormal gait, Denies dizziness, Denies headache(s), Denies memory loss, Denies numbness, Denies Sensory deficit (Neuro), Denies tingling and Denies weakness Psych Reports anxiety, Reports depression, Denies memory loss Endo Denies cold intolerance, Denies fatigue, Denies heat intolerance, Denies polydipsia and Denies polyuria Aller/Immun Denies wheezing Physical exam (Primary Care) Vital Signs: Last Vital Signs Temp 98.9 F 09/09/24 12:49 Pulse 72 09/09/24 12:49 Resp 16 09/09/24 12:49 BP 135/72 09/09/24 12:49 Pulse Ox 98 09/09/24 12:49 Oxygen Delivery Method Room Air 09/09/24 12:49 BMI result Body Mass Index 40.2 Tobacco/Smoking Status: Tobacco use Status Tobacco use date assessed 09/09/24 09/09/24 12:52 Patient Tobacco Use Status Former Tobacco user 09/09/24 12:44 Tobacco use type Cigarette 09/09/24 12:44 e-Cigarette/Vaping Use Never Used 09/09/24 12:44 PHQ-9: PHQ-9 Score PHQ-9: Total score 10 09/09/24 13:26 Depression Screening Interpretation: Positive Depression Screening Follow-up: Existing condition, In treatment and Community Mental Health Worker F/U Thrive Assessment: Date of Thrive Assessment Date Thrive assessed 09/09/24 09/09/24 12:53 Currently or been in a relationship where the following occur: No concerns reported Const Other: General: no acute distress and well developed Nutritional Appearance: well nourished Orientation/consciousness: patient oriented x3 HENMT Head: Yes normocephalic and Yes atraumatic Eyes General: appearance normal, both eyes and all related structures Pupils: Equal, round and reactive pupils present EOM: EOMs intact bilaterally Resp Effort & Inspection: normal respiratory effort Auscultation: clear to auscultation bilaterally Cardio Rate: regular rate Rhythm: regular rhythm Heart sounds: S1 normal heart sound present, S2 normal heart sound present, no gallops, no murmurs and no rubs GI Palpation (GI): No Abdominal aortic bruit present, Soft to palpation, nontender, No hepatosplenomegaly present and No Rebound tenderness present Auscultation: normal bowel sounds General: Yes no CVA tenderness Back/Spine/Pelvis Back: no CVA tenderness Cervical Spine: cervical ROM normal and No Cervical spine tenderness Thoracic/Lumbar Spine: thoraco-lumbar ROM normal, No pain with thoraco-lumbar ROM, No thoracic spinal tenderness and No lumbar spinal tenderness Extrem General: Yes normal to inspection, No edema and No calf tenderness Skin General: warm and dry. Normal skin color. Normal skin turgor Neuro General: patient oriented x3, gait normal and no focal neuro deficit Cranial nerves: Yes Equal, round and reactive pupils present Cognition (Neuro): normal cognition Gait exam (Neuro): Normal gait present Sensory Exam: No Sensory deficit (Neuro) Psych Appearance: grossly normal Affect: Constricted Attitude: cooperative Thought process: Normal thought process present Coding Level of Care Code Est Pt Level 4 (09278) Diagnoses Anxiety with depression F41.8 Adjustment disorder F43.20 Additional Codes MELISSA-7 Assessment Billing - MELISSA-7 Assessment Tool: MELISSA-7 Assessment 39989 ([id number]) PHQ-9 - 84856 - PHQ-9 Billing: Yes ([id number]) Assessment & Plan Assessment & Plan (1) Anxiety with depression: Code(s): F41.8 - Other specified anxiety disorders Category: Medical Plan: His anxiety and depression symptoms have generally been well controlled. He notes that he has been under significant amount of stress in the past couple of months. He is exposed to daily personal and family stressors, including work, caring for a 1 year old child and his who has brain cancer. Although his is in remission, he finds it challenging to have a full conversation with her because she utters a few words due to her condition - he finds it very frustrating. He is finding it difficult to adjust to his 's medical condition and caring for their 1-year-old child. PHQ-9 and MELISSA-7 score reveals moderate depression and anxiety. Continue current treatment regimen. Hydroxyzine 25 mg 3 times daily as needed ordered to target anxiety; advised to take as prescribed. Instructed on the risks, benefits, and potential adverse reactions of the medication. He met with the [facility] who will refer him to a therapist. Follow-up in 1 month or sooner with worsening or new symptoms. Verbalized understanding and agreed with treatment plan. (2) Adjustment disorder: Code(s): F43.20 - Adjustment disorder, unspecified Category: Medical Plan: Plan as above. Medications: New hydroxyzine HCl 25 mg PO TID PRN 90 tabs 3RF anxiety
[2024-09-09 12:49] VITALS: BP 135/72; PULSE 72; RESP 16; TEMP 37.2; O2SAT 98; BMI 40.2
== END 2024-09-09 13:40 | disposition home or self-care (01) ==
LOC: HO.HMCFM 12:37
PROVIDERS: PCP Nurse Practitioner Family; Visit Provider Nurse Practitioner Family
DX: F41.8 Other specified anxiety disorders (principal); F43.20 Adjustment disorder, unspecified

== ENCOUNTER → 2024-09-09 12:36 | Outpatient (BNVA) | payer OTHER, SELFPAY | PROVIDERS: PCP Nurse Practitioner Family; Visit Provider Nurse Practitioner Family | DX: F41.8 Other specified anxiety disorders (principal); F43.20 Adjustment disorder, unspecified; Z79.899 Other long term (current) drug therapy; Z13.31 Encounter for screening for depression; Z13.30 Encounter for screening examination for mental health and behavioral disorders, unspecified | CPT/HCPCS: 96127 ==